=== PATIENT | female | born 2005 | race Caucasian/White ===

== ENCOUNTER 2023-03-13 06:28 | Emergency (ER) | payer OTHER ==
[~2023-03-13] VITALS: Ht 154.9 cm; Wt 47.6 kg
[2023-03-13] MEDS ORDERED: CLEOCIN HCL300 MG PO (08:07)
[2023-03-13] MEDS ORDERED: MUPIROCIN15 GM TOP (08:08)
[2023-03-13] MEDS ORDERED: HIBICLENS118 ML TOP (08:10)
== END 2023-03-13 09:43 | disposition home or self-care (01) ==
LOC: ER 06:29 → EMR PED 06:29
DX: L01.09 Other impetigo (principal)